=== PATIENT | female | born 1995 | race Caucasian/White ===

== ENCOUNTER 2018-12-23 11:44 | Emergency (ER) | payer MEDICAID ==
[~2018-12-23] VITALS: Ht 165.1 cm; Wt 65.8 kg
[2018-12-23 11:56] VITALS: Ht 165.1 cm; Wt 65.8 kg
[2018-12-23 13:14] LABS: UA SPECIFIC GRAVITY 1.015 (1.005-1.035); microscopic required? YES; urine erythrocyte NEGATIVE (NEGATIVE)
[2018-12-23 13:17] LABS: BASOPHIL % 0.3 % (0-2); PLATELET COUNT 261 x10^3mcL (130-400)
[2018-12-23 13:21] LABS: RED CELL DISTRIBUTION WIDTH 14.7 % (11.5-14.5)
[2018-12-23 13:31] LABS: AMPHETAMINE QUAL UR NONE DETECTED (See below)
[2018-12-23 14:55] VITALS: BP 125/69
== END 2018-12-23 14:55 | disposition home or self-care (01) ==
LOC: ED 11:44
PROVIDERS: Specialist
DX: O26.893 Other specified pregnancy related conditions, third trimester (principal); F19.10 Other psychoactive substance abuse, uncomplicated; F17.210 Nicotine dependence, cigarettes, uncomplicated; Z3A.24 24 weeks gestation of pregnancy
CPT/HCPCS: 36415; 99406

== ENCOUNTER 2018-12-28 17:41 | Emergency (ER) | payer OTHER ==
[~2018-12-28] VITALS: Ht 165.1 cm; Wt 62.6 kg
[2018-12-28 17:46] VITALS: Ht 165.1 cm; Wt 62.6 kg
[2018-12-28 19:22] VITALS: BP 103/70
== END 2018-12-28 19:22 | disposition home or self-care (01) ==
LOC: ED 17:41
DX: O99.612 Diseases of the digestive system complicating pregnancy, second trimester (principal); K08.9 Disorder of teeth and supporting structures, unspecified; Z3A.00 Weeks of gestation of pregnancy not specified
CPT/HCPCS: J2001; J2270; J2765